=== PATIENT | male | born 1970 | race African-American/Black ===

== ENCOUNTER 2018-11-06 14:29 | Emergency (ER) | payer OTHER ==
[~2018-11-06] VITALS: Ht 182.8 cm; Wt 122.5 kg
[2018-11-06] MEDS ORDERED: ROBAXIN-750750 MG PO (17:49)
[2018-11-06] MEDS ORDERED: IBUPROFEN600 MG PO (17:49)
== END 2018-11-06 18:01 | disposition home or self-care (01) ==
LOC: ED 14:29
DX: S13.4XXA Sprain of ligaments of cervical spine, initial encounter (principal); V47.5XXA Car driver injured in collision with fixed or stationary object in traffic accident, initial encounter; Y93.89 Activity, other specified; Y92.89 Other specified places as the place of occurrence of the external cause; Y99.8 Other external cause status